=== PATIENT | male | born 1965 | race Caucasian/White ===

== ENCOUNTER 2023-03-14 15:30 | Emergency (ER) | payer OTHER, SELFPAY ==
[2023-03-14 15:31] VITALS: BP 194/105; RESP 18; TEMP 36.8; BMI 28.1
[2023-03-14 15:39] VITALS: PULSE 107; RESP 18; O2SAT 95
--- NOTE | 2023-03-14 15:49 | W.ED.ALLEREA ---
HPI - Allergic Reaction General: Chief complaint: Allergic Reaction Stated complaint: ALLERGIC REACTION Time Seen by Provider: 03/14/23 15:49 History of Present Illness: HPI narrative: Mr. Pillai is a 58-year-old gentleman presenting to the emergency department for evaluation of anaphylaxis. He reports getting stung by yellow jackets on his nose and arms. He subsequently had a syncopal episode with altered mental status and pallor. EMS arrived and patient was responsive. Benadryl and Solu-Medrol given prehospital. Patient currently feels mildly unwell however not as bad as he did. Denies similar episodes in the past. No other specific changes in health, exacerbating, or alleviating factors identified. Review of Systems General: Reports: 10 or more systems reviewed and unremarkable except in HPI and below PFSH ED PFSH: Medical History (Updated 03/23/23 @ 15:55 by Chandu Grier MD) No significant past medical history Surgical History (Updated 03/23/23 @ 15:55 by Chandu Grier MD) No significant past surgical history Physical Exam Const: COMMON NORMALS: alert GENERAL APPEARANCE: cooperative and well developed HENMT: COMMON NORMALS: normocephalic and atraumatic HEAD & SCALP: normocephalic and atraumatic THROAT: posterior oropharynx normal Eye: COMMON NORMALS: conjunctivae normal CONJUNCTIVA: Yes conjunctivae normal SCLERA: sclerae normal Neck/C-Spine: COMMON NORMALS: supple GENERAL: Yes trachea midline Resp: COMMON NORMALS: clear to auscultation bilaterally EFFORT & INSPECTION: Yes able to speak in complete sentences AUSCULTATION: clear to auscultation bilaterally Cardio: COMMON NORMALS: regular rate and regular rhythm RATE: regular rate RHYTHM: regular rhythm GI: COMMON NORMALS: Soft to palpation PALPATION: Yes Soft to palpation and No Tenderness to palpation present (GI) Extremity: GENERAL: Yes normal exam except as noted and No edema Neuro: COMMON NORMALS: moves all extremities SENSORIUM/ORIENTATION: Yes alert and No Orientation impaired Psych: COMMON NORMALS: mental status grossly normal and Normal thought process present THOUGHT PROCESS: Normal thought process present Course Vital Signs: Vital signs: Vital Signs Temperature 98.2 F 03/14/23 15:31 Pulse Rate 98 03/14/23 17:00 Respiratory Rate 16 03/14/23 16:08 Blood Pressure 157/93 03/14/23 17:00 Pulse Oximetry 95 03/14/23 18:04 Oxygen Delivery Me thod Room Air 03/14/23 15:39 MDM - Allergic Reaction Medical Decision Making 58-year-old gentleman presenting with multiple insect stings and associated syncopal episode. Somewhat ill however nontoxic. No focal deficits. EKG demonstrates sinus rhythm with normal axis and intervals with exception of first-degree AV block. No STEMI. Labs with no significant hematologic abnormalities. Metabolic panel with mild dehydration and elevated creatinine. Chest x-ray with no lobar consolidation or pneumothorax. Treated with fluids and Pepcid. Continues to have sustained improvement on serial reexamination without evidence of recurrence. The results of ED evaluation were discussed with the patient including prescriptions and/or symptomatic cares (if applicable) including appropriate and responsible use, followup plan, and return precautions. The patient verbalized understanding and felt safe for discharge. Medical Records I reviewed the patient's medical records. Lab Data I reviewed the patient's lab results. 03/14/23 14:49 03/14/23 14:49 Radiology Impressions Chest X-Ray 03/14/23 15:54 IMPRESSION: Unremarkable portable chest. Laboratory Results WBC 8.6 10^3/uL (4.0-10.0) 03/14/23 14:49 RBC 5.05 10^6/uL (4.1-5.3) 03/14/23 14:49 Hgb 15.1 g/dL (11.7-16.6) 03/14/23 14:49 Hct 45.7 % (42.0-52.0) 03/14/23 14:49 MCV 90.5 fl (80-94) 03/14/23 14:49 MCH 29.9 pg (28.0-34.0) 03/14/23 14:49 MCHC 33.0 g/dL (30.0-36.0) 03/14/23 14:49 RDW 12.6 % (12.1-15.1) 03/14/23 14:49 Plt Count 344 10^3/cmm (130-400) 03/14/23 14:49 MPV 11.1 fL (7.4-10.4) H 03/14/23 14:49 Neut % (Auto) 71.4 % 03/14/23 14:49 Lymph % (Auto) 21.7 % 03/14/23 14:49 [place] % (Auto) 5.2 % 03/14/23 14:49 Eos % (Auto) 1.2 % 03/14/23 14:49 Baso % (Auto) 0.2 % 03/14/23 14:49 Neut # (Auto) 6.15 10^3/uL (1.8-7.7) 03/14/23 14:49 Lymph # (Auto) 1.9 10^3/uL (0.8-4.8) 03/14/23 14:49 [place] # (Auto) 0.5 10^3/uL (0.2-0.9) 03/14/23 14:49 Eos # (Auto) 0.1 10^3/uL (0.0-0.8) 03/14/23 14:49 Baso # (Auto) 0.0 10^3/uL (0.0-0.1) 03/14/23 14:49 Nucleated RBC % (auto) 0 % 03/14/23 14:49 Nucleated RBCs # 0.0 /100WBC 03/14/23 14:49 Sodium 142 mmol/L (136-145) 03/14/23 14:49 Potassium 3.6 mmol/L (3.5-5.1) 03/14/23 14:49 Chloride 103 mmol/L (98-107) 03/14/23 14:49 Carbon Dioxide 22 mmol/L (22-29) 03/14/23 14:49 Anion Gap 20.6 (5-19) H 03/14/23 14:49 BUN 19 mg/dL (6-20) 03/14/23 14:49 Creatinine 1.4 mg/dL (0.7-1.2) H 03/14/23 14:49 GFR Calculation 52.1 mL/min (90-130) L 03/14/23 14:49 Glucose 123 mg/dL (65-115) H 03/14/23 14:49 Calculated Osmolality 298 mOsm/kg (285-295) H 03/14/23 14:49 Calcium 9.7 mg/dL (8.5-10.5) 03/14/23 14:49 Total Bilirubin 0.5 mg/dL (0.15-1.2) 03/14/23 14:49 AST 18 U/L (0-40) 03/14/23 14:49 ALT 17 U/L (0-41) 03/14/23 14:49 Alkaline Phosphatase 49 U/L (40-130) 03/14/23 14:49 Troponin T Baseline 9 ng/L (0-15) 03/14/23 14:49 Troponin T 120 Minute 11.46 ng/L (0-15) 03/14/23 16:48 Delta Troponin T 2.46 ABS# (0-10) 03/14/23 16:48 Total Protein 7.5 g/dL (6.6-8.7) 03/14/23 14:49 Albumin 4.4 g/dL (3.5-5.2) 03/14/23 14:49 Globulin 3.1 g/dL (1.3-4.6) 03/14/23 14:49 Discharge Plan Discharge Patient Disposition: Home Clinical Impression: Insect bites and stings, Anaphylaxis Condition: Stable Prescriptions: New EpiPen 2-Marquise 0.3 mg/0.3 mL auto-injector 0.3 mg IM Q10M PRN (Reason: anaphylaxis) Qty: 2 3RF Rx Instructions: for 2 doses Discharge Orders: Discharge ED (Routine); Ordered 03/14/23 Ordered By: Chandu Grier Discharge Diet: Usual diet Discharge Activity: Increase activity as tolerated Patient Instructions: Insect Bite or Sting (ED), Anaphylaxis (ED) Activity Restrictions/Additional Instructions: Thank you for visiting the emergency department. You were seen and evaluated for likely severe allergic reaction/anaphylaxis. We are pleased that your improved with treatment. We will prescribe steroids and Pepcid. For symptoms that occur despite these medications you may use Benadryl. Additionally I will prescribe EpiPen if anaphylactic reaction occurs again. Follow-up with your primary care provider. Return for anything that you are concerned about and feel needs emergency department evaluation. Coding Level of Care Code ED Driver License Examiner for Elisha Rosas
--- NOTE | 2023-03-14 15:54 | XR_ITS ---
WS: [id number] PORTABLE CHEST HISTORY: syncope COMPARISON: None available. Lungs are clear and well expanded. No pleural effusion or pneumothorax. Cardiac size: Normal. Mediastinum/Aorta: Mild atherosclerosis aorta. No osseous abnormality seen. XR/XR chest 1V portable [id number] IMPRESSION: Unremarkable portable chest.
[2023-03-14] MEDS: famotidine 20 mg/2 mL INJ 40 MG IVP (16:07)
[2023-03-14] MEDS: sodium chloride 0.9% 1,000 ML 999 ML IV (16:07)
[2023-03-14 16:08] VITALS: BP 177/104; PULSE 104; RESP 16; O2SAT 93
--- NOTE | 2023-03-14 16:10 | ECG_ITS ---
[facility] Test Date: 2023-03-14 Pat Name: Kodak Pillai Department: Room: Gender: Male Rig Superintendent: : 1965 Requested By: Chandu Grier Order Number: [id number] Ashanti MD: Eric Redman M.D. Measurements Intervals [place] Rate: 98 P: 56 [place]: 211 QRS: 26 QRSD: 97 T: 99 QT: 360 QTc: 461 Interpretive Statements SINUS RHYTHM WITH FIRST DEGREE AV BLOCK MODERATE VOLTAGE CRITERIA FOR LVH, CONSIDER NORMAL VARIANT [MEETS CRITERIA IN ONE OF: R(aVL), S(V1), R(V5), R(V5/V6)+S(V1)] ST DEVIATION AND MODERATE T-WAVE ABNORMALITY, CONSIDER LATERAL ISCHEMIA [-0.1+ mV T-WAVE IN I/aVL/V5/V6] No previous ECG available for comparison Electronically Signed On 03-14-2023 19:53:50 CDT by Eric Redman M.D. [id number]
[2023-03-14 16:13] LABS: Basophils % 0.2 %; Eosinophils # 0.1 10^3/uL (0.0-0.8); Eosinophils % 1.2 %; Hematocrit 45.7 % (42.0-52.0); Hemoglobin 15.1 g/dL (11.7-16.6); Lymphocytes # 1.9 10^3/uL (0.8-4.8); Lymphocytes % 21.7 %; Mean Corpuscular Hemoglobin 29.9 pg (28.0-34.0); Mean Corpuscular Volume 90.5 fl (80-94); Mean Platelet Volume 11.1 fL (7.4-10.4); Monocytes # 0.5 10^3/uL (0.2-0.9); Monocytes % 5.2 %; Neutrophils # 6.15 10^3/uL (1.8-7.7); Neutrophils % 71.4 %; Nucleated Red Blood Cells % 0 %; Platelet Count 344 10^3/cmm (130-400); Red Blood Count 5.05 10^6/uL (4.1-5.3); Red Cell Distribution Width 12.6 % (12.1-15.1); White Blood Count 8.6 10^3/uL (4.0-10.0)
[2023-03-14 16:24] LABS: Alanine Aminotransferase 17 U/L (0-41); Albumin Level 4.4 g/dL (3.5-5.2); Alkaline Phosphatase 49 U/L (40-130); Anion Gap 20.6 (5-19); Aspartate Amino Transferase 18 U/L (0-40); Blood Urea Nitrogen 19 mg/dL (6-20); Calcium 9.7 mg/dL (8.5-10.5); Carbon Dioxide 22 mmol/L (22-29); Chloride 103 mmol/L (98-107); Globulin 3.1 g/dL (1.3-4.6); Glomerular Filtration Rate 52.1 mL/min (90-130); Glucose 123 mg/dL (65-115); Osmolality Calculated 298 mOsm/kg (285-295); Potassium 3.6 mmol/L (3.5-5.1); Sodium 142 mmol/L (136-145); Total Bilirubin 0.5 mg/dL (0.15-1.2); Total Protein 7.5 g/dL (6.6-8.7); Troponin(5th) Baseline 9 ng/L (0-15)
[2023-03-14 16:30] VITALS: BP 150/94; PULSE 101; O2SAT 92
[2023-03-14 17:00] VITALS: BP 157/93; PULSE 98; O2SAT 91
[2023-03-14 17:39] LABS: Troponin 5 2HR 11.46 ng/L (0-15)
[2023-03-14 17:55] LABS: Troponin 5 2HR Delta 2.46 ABS# (0-10)
[2023-03-14 18:04] VITALS: O2SAT 95
== END 2023-03-14 18:06 | disposition home or self-care (01) ==
PROVIDERS: Emergency Provider Emergency Medicine
DX: T63.441A Toxic effect of venom of bees, accidental (unintentional), initial encounter (principal); T78.2XXA Anaphylactic shock, unspecified, initial encounter
CPT/HCPCS: 36415; 71045; 80053; 84484; 85025; 93005; 96374; 99285; J3490; J7030

== ENCOUNTER → 2023-03-24 08:52 | Outpatient (BNVA) | payer OTHER, SELFPAY | PROVIDERS: PCP Nurse Practitioner Family; Visit Provider Nurse Practitioner Family | DX: I10 Essential (primary) hypertension (principal) | CPT/HCPCS: 80053; 80061 ==

== ENCOUNTER → 2023-07-23 08:43 | Outpatient (BNVA) | payer OTHER, SELFPAY | PROVIDERS: PCP Nurse Practitioner Family; Visit Provider Nurse Practitioner Family | DX: R07.89 Other chest pain (principal); I10 Essential (primary) hypertension | CPT/HCPCS: 93005 ==

== ENCOUNTER 2023-09-10 12:02 | Outpatient (CLI) | payer OTHER, SELFPAY ==
--- NOTE | 2023-09-10 | ECG_ITS ---
[facility] Test Date: 2023-09-10 Pat Name: Kodak Pillai Department: Room: Gender: Male Director Of [employer]: Domonique Rahman : 1965 Requested By: Elaina Mayes Order Number: [id number] Ashanti MD: Christ Gilmore M.D. Interpretive Statements NAME OF STUDY: TREADMILL STRESS TEST INDICATION: [Chest Pain, ] EXERCISE DATA: The patient was exercised by Alli protocol. Baseline heart rate was 63 beats per minute. Baseline blood pressure was 136/77 millimeters of mercury. Target heart rate was 138 beats per minute. Maximum heart rate achieved was 153, which was 110% of the target heart rate. Maximum blood pressure was 210/81 millimeters of mercury. Total exercise time was 8 minutes 56 seconds. Maximum METs achieved was 10.2. The reason for ending the test was completion of protocol. The patient complained of shortness of breath during the stress test, which then resolved at the end of the test. ELECTROCARDIOGRAM: BASELINE: Showed sinus rhythm, normal axis, no significant ST-T changes at the baseline noted. [] EXERCISE: At the peak exercise level, [] No significant ST-T changes suggestive of ischemia noted. [] RECOVERY: During the recovery period, heart rate dropped appropriately. No significant ST-T changes in the recovery suggestive of ischemia noted. [] CONCLUSION: 1. Exercise capacity is good. 2. Heart rate response was appropriate 3. Blood pressure response was appropriate 4. Symptoms not suggestive of ischemia. 5. Stress test does not indicate ischemia Electronically Signed On 09-12-2023 13:43:13 INSULATION BOARD COATER OPERATOR by Christ Gilmore M.D. [id number]
[2023-09-10 12:28] VITALS: BMI 29.0
[2023-09-10 13:02] VITALS: BP 145/80; PULSE 96
== END 2023-09-10 12:03 | disposition home or self-care (01) ==
PROVIDERS: PCP Nurse Practitioner Family; Visit Provider Nurse Practitioner Family
DX: R07.9 Chest pain, unspecified (principal)
CPT/HCPCS: 93017

== ENCOUNTER → 2024-01-12 09:01 | Outpatient (BNVA) | payer OTHER, SELFPAY | PROVIDERS: PCP Nurse Practitioner Family; Visit Provider Nurse Practitioner Family | DX: I10 Essential (primary) hypertension (principal); Z79.899 Other long term (current) drug therapy | CPT/HCPCS: 80053; 80061; 85025 ==

== ENCOUNTER 2024-05-08 11:26 | Outpatient (CLI) | payer OTHER, SELFPAY ==
--- NOTE | 2024-05-08 11:30 | XR_ITS ---
WS: [id number] Exam: XR knee RT 3V* [id number] Date/Time of Exam: 05/08/2024 11:34 AM Reason For Exam: [id number] - Pain in right knee No acute fracture or dislocation. Mild to moderate narrowing of the medial compartment. No joint effu vish. Normal soft tissues. XR/XR knee RT 3V* [id number] IMPRESSION: 1. Degenerative narrowing of the medial joint compartment. No fracture or other significant finding.
== END 2024-05-08 11:27 | disposition home or self-care (01) ==
LOC: RAD 11:27
PROVIDERS: PCP Nurse Practitioner Family; Visit Provider Nurse Practitioner Family
DX: M17.11 Unilateral primary osteoarthritis, right knee (principal)
CPT/HCPCS: 73562; 80053; 84550; 85025; 85651; 86140

== ENCOUNTER 2025-03-14 09:54 | Emergency (ER) | payer OTHER, SELFPAY ==
[2025-03-14 10:05] VITALS: BP 180/115; PULSE 74; RESP 16; TEMP 36.8; O2SAT 96; BMI 27.2
--- NOTE | 2025-03-14 10:06 | CT_ITS ---
WS: [id number] CT HEAD NONCONTRAST HISTORY: leg weakness TECHNIQUE: Contiguous axial imaging performed through the brain. Bone and soft tissue windows. Sagittal and coronal reformats reviewed. All CT scans at [facility] use at least one of these dose optimization techniques: automated exposure control; mA and/or kV adjustment per patient size (includes targeted exams where dose is matched to clinical indication); or iterative reconstruction. DLP: 1183.38 mGy.cm COMPARISON: None available. No acute intracranial hemorrhage, midline shift or mass effect. Very minimal atrophy and small vessel disease. Prior lacunar infarct LEFT basal ganglia. Hyperdense lesion involving the posterior LEFT parietal cortex measures 7 x 7 mm. No adjacent edema. No additional similar lesions. Ventricles: Normal size with no hydrocephalus. No inferior displacement of cerebellar tonsils. Paranasal sinuses: As visualized are clear. Mastoid air cells: Well pneumatized. Calvarium and scalp: Skull is intact with no soft tissue edema or swelling. CT/CT head wo con* [id number] IMPRESSION: 1. Hyperdense 7 x 7 mm lesion in the posterior LEFT parietal cortex. Different ial includes blood products, cavernous malformation, calcification and metastat ic site. Recommend follow-up MRI brain with and without contrast. 2. Mild cerebral atrophy with a small lacunar infarct in the LEFT basal gangli a.
--- NOTE | 2025-03-14 10:07 | W.ED.GENADLT ---
HPI - General Adult General: Chief complaint: Weakness Stated complaint: L knee issues Time Seen by Provider: 03/14/25 10:00 Source: patient Mode of arrival: ambulatory Limitations: no limitations History of Present Illness: 60-year-old male states that over the last 2 days he feels like his left leg is not working quite correctly. Patient is ambulatory here but he states that he just feels weak in his left leg from the hip down. He denies any pain in his back or hip or knee. He denies any slurred speech denies any numbness. Associated symptoms: Deny chest pain, dyspnea, headache(s), nausea, rash or vomiting Related Data Home Medications ?Medication ?Instructions ?Recorded ?Confirmed Super Beet Chews 2 chewable tab PO DAILY 03/14/25 03/14/25 aspirin 81 mg chewable tablet 81 mg PO DAILY 03/14/25 03/14/25 Previous Rx's ?Medication ?Instructions ?Recorded lisinopril 30 mg tablet 30 mg PO BID #180 tabs 05/08/24 atorvastatin 80 mg tablet (Lipitor) 80 mg PO DAILY #30 tabs 03/14/25 Allergies Allergy/AdvReac Type Severity Reaction Status Date / Time insect venom Allergy Severe syncope Verified 06/20/24 14:03 Review of Systems Const: Denies: fever(s), chills, body aches or change in appetite ENMT: Denies: throat pain or dental pain Card: Denies: chest pain Resp: Denies: dyspnea GI: Denies: abdominal pain, nausea, vomiting or diarrhea Musc: Denies: neck pain or back pain Skin/Breast: Denies: rash Neuro: Reports: weakness in extremities; Denies: headache(s) PFSH ED PFSH: Medical History Hypertension No significant past medical history Surgical History No significant past surgical history Social History Smoking and tobacco/nicotine status: never used tobacco/nicotine Physical Exam Const: COMMON NORMALS: no acute distress, patient oriented x3 and healthy appearing HENMT: COMMON NORMALS: normocephalic and atraumatic HEAD & SCALP: normocephalic and atraumatic Eye: COMMON NORMALS: conjunctivae normal CONJUNCTIVA: Yes conjunctivae normal OTHER: Foreign body noted left eye Neck/C-Spine: COMMON NORMALS: full ROM and supple Chest: COMMONS NORMALS: normal inspection of the chest Resp: COMMON NORMALS: normal respiratory effort, No retractions, No use of accessory muscles and clear to auscultation bilaterally AUSCULTATION: clear to auscultation bilaterally Cardio: COMMON NORMALS: regular rate, regular rhythm and No murmurs present (Cardio) RATE: regular rate RHYTHM: regular rhythm Extremity: COMMON NORMALS: normal to inspection and full ROM Neuro: COMMON NORMALS: patient oriented x3, moves all extremities and no focal motor deficits SPEECH: speech normal GAIT: Yes Normal gait present MOTOR EXAM: 5/5 motor strength present throughout Psych: COMMON NORMALS: mental status grossly normal, Normal thought process present and cooperative THOUGHT PROCESS: Normal thought process present Skin: COMMON NORMALS: no rashes or lesions noted and no wounds GENERAL SKIN EXAM: no rashes or lesions noted Course Vital Signs: Vital signs: Vital Signs Temperature 98.2 F 03/14/25 10:05 Pulse Rate 72 03/14/25 12:47 Respiratory Rate 18 03/14/25 12:47 Blood Pressure 184/111 03/14/25 12:47 Pulse Oximetry 97 03/14/25 12:47 Oxygen Delivery Me thod Room Air 03/14/25 10:05 [facility] - General Adult Medical Decision Making Patient presents here with some leg weakness head CT I did go over with him showing a possible mass did attempt MRI but he has piece of metal in his I believe it been there for quite some time did attempt to remove it with a bur was not able to fully remove it so is not able to get MRI I did offer him admission but he states that he wants to follow-up we will get him follow-up with neurology he does take a baby aspirin today we will prescribe him a statin. He is going to follow-up with his coverage specialist for the foreign body Medical Records I reviewed the patient's medical records. Lab Data 03/14/25 10:35 03/14/25 10:[address] 03/14/25 10:06 IMPRESSION: 1. Hyperdense 7 x 7 mm lesion in the posterior LEFT parietal cortex. Differential includes blood products, cavernous malformation, calcification and metastatic site. Recommend follow-up MRI brain with and without contrast. 2. Mild cerebral atrophy with a small lacunar infarct in the LEFT basal ganglia. Laboratory Results WBC 8.44 10^3/uL (3.29-11.43) 03/14/25 10:35 RBC 4.55 10^6/uL (3.85-5.65) 03/14/25 10:35 Hgb 13.30 g/dL (11.27-16.99) 03/14/25 10:35 Hct 41.4 % (37-53) 03/14/25 10:35 MCV 91.0 fl (82-101) 03/14/25 10:35 MCH 29.2 pg (27-33) 03/14/25 10:35 MCHC 32.1 g/dL (30-55) 03/14/25 10:35 RDW 12.4 % (12.1-15.1) 03/14/25 10:35 Plt Count 293 10^3/cmm (157-399) 03/14/25 10:35 MPV 10.2 fL (7.4-10.4) 03/14/25 10:35 Neut % (Auto) 74.8 % 03/14/25 10:35 Lymph % (Auto) 14.9 % 03/14/25 10:35 [place] % (Auto) 6.9 % 03/14/25 10:35 Eos % (Auto) 2.7 % 03/14/25 10:35 Baso % (Auto) 0.5 % 03/14/25 10:35 Neut # (Auto) 6.31 10^3/uL (1.8-7.7) 03/14/25 10:35 Lymph # (Auto) 1.3 10^3/uL (0.8-4.8) 03/14/25 10:35 [place] # (Auto) 0.6 10^3/uL (0.2-0.9) 03/14/25 10:35 Eos # (Auto) 0.2 10^3/uL (0.0-0.8) 03/14/25 10:35 Baso # (Auto) 0.0 10^3/uL (0.0-0.1) 03/14/25 10:35 Nucleated RBC % (auto) 0 % 03/14/25 10:35 Nucleated RBCs # 0.0 /100WBC 03/14/25 10:35 Sodium 138 mmol/L (136-145) 03/14/25 10:35 Potassium 4.0 mmol/L (3.5-5.1) 03/14/25 10:35 Chloride 103 mmol/L (98-107) 03/14/25 10:35 Carbon Dioxide 23 mmol/L (22-29) 03/14/25 10:35 Anion Gap 16.0 (5-19) 03/14/25 10:35 BUN 20 mg/dL (8-23) 03/14/25 10:35 Creatinine 1.1 mg/dL (0.7-1.2) 03/14/25 10:35 GFR Calculation 68.3 mL/min (90-130) L 03/14/25 10:35 Glucose 97 mg/dL (65-115) 03/14/25 10:35 Calculated Osmolality 289 mOsm/kg (285-295) 03/14/25 10:35 Calcium 9.2 mg/dL (8.5-10.5) 03/14/25 10:35 Total Bilirubin 0.3 mg/dL (0.15-1.2) 03/14/25 10:35 AST 19 U/L (0-40) 03/14/25 10:35 ALT 18 U/L (0-41) 03/14/25 10:35 Alkaline Phosphatase 53 U/L (40-130) 03/14/25 10:35 Total Protein 7.6 g/dL (6.6-8.7) 03/14/25 10:35 Albumin 4.1 g/dL (3.5-5.2) 03/14/25 10:35 Globulin 3.5 g/dL (1.3-4.6) 03/14/25 10:35 All radiology interpretation(s) finalized by discharge EKG Data EKG 1: I personally reviewed and interpreted this EKG as follows: EKG interpretation date: 03/14/25 EKG interpretation time: 10:14 Interpretation: nsr hr [address] or t wave abnormalities qrs 90 qtc 399 Computer generated interpretation: Head CT 03/14/25 10:06 IMPRESSION: 1. Hyperdense 7 x 7 mm lesion in the posterior LEFT parietal cortex. Differential includes blood products, cavernous malformation, calcification and metastatic site. Recommend follow-up MRI brain with and without contrast. 2. Mild cerebral atrophy with a small lacunar infarct in the LEFT basal ganglia. Discharge Plan Discharge Patient Disposition: Home Clinical Impression: Leg weakness, Foreign body, eye Condition: Stable Prescriptions: New atorvastatin [Lipitor] 80 mg tablet 80 mg PO DAILY Qty: 30 0RF No Action lisinopril 30 mg tablet 30 mg PO BID Qty: 180 1RF aspirin [[facility] Childrens Aspirin] 81 mg Tablet,Chewable 81 mg PO DAILY Super Beet Chews 2 chewable tab PO DAILY Discharge Orders: Discharge ED (Routine); Ordered 03/14/25 Ordered By: Maggie Hood Referrals: All Lara MD [Physician, Neurology] - 4-7 days Elaina Mayes FNP [Primary Care Provider, Family Practice] Discharge Diet: Advance as tolerated Discharge Activity: Resume usual activity Patient Instructions: Foreign Body - Eye Print Language: Tamazight Coding Level of Care Code ED Plow And Boring Machine Tender for Elisha Rosas NIH stroke score NIHSS Level Of Consciousness - 1a: 0 Level Of Consciousness Questions - 1b: Both Correct Level Of Consciousness Commands - 1c: Both Correct Best Gaze - 2: Normal Visual Farrell - 3: No Visual Loss Facial Palsy - 4: Normal Motor Arm Right - 5: No Drift Motor Arm Left - 5: No Drift Motor Leg Right - 6: No Drift Motor Leg Left - 6: No Drift Limb Ataxia - 7: Absent Sensory - 8: Normal Best Language - 9: No Aphasia Dysarthia - 10: Normal Extinction And Inattention - 11: 0 Score Total Score: 0
--- OUTSIDE RECORDS SUMMARY | 2025-03-14 10:12 | XMS_ITS | Encounter Summary ---
Author Organization [facility] Address [address] [place] [address] Care Team Providers Care Licensing Director Name Role Phone Rhona Wu MD Primary Care Provider Encounter Details Date Type Department Care Team (Latest Contact Info) Description 09/02/2006 Outpatient Historical [facility] Family Medicine [place] [address] [phone] Elaina Mayes, FLEA MARKET SELLER [address] [place] [address] Pain in Joint, Lower Leg (Primary Dx) Social History Tobacco Use Types Packs/Day Years Used Date Smoking Tobacco: Never Assessed Sex and Gender Information Value Date Recorded Sex Assigned at Not on file 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
--- OUTSIDE RECORDS SUMMARY | 2025-03-14 10:12 | XMS_ITS | Encounter Summary ---
Author Organization [facility] Address [address] [place] [address] Care Team Providers Care Area Forester Name Role Phone Rhona Wu MD Primary Care Provider Encounter Details Date Type Department Care Team (Latest Contact Info) Description 09/16/2006 Outpatient Historical [facility] [place] [address] [phone] Elaina Mayes, MITERING MACHINE OPERATOR [address] [place] [address] Effusion of Lower Leg Joint (Primary Dx) Social History Tobacco Use Types Packs/Day Years Used Date Smoking Tobacco: Never Assessed Sex and Gender Information Value Date Recorded Sex Assigned at Not on file 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
--- OUTSIDE RECORDS SUMMARY | 2025-03-14 10:12 | XMS_ITS | Encounter Summary ---
Author Organization [facility] Address [address] [place] [address] Care Team Providers Care Stud Setter Name Role Phone Rhona Wu MD Primary Care Provider Encounter Details Date Type Department Care Team (Latest Contact Info) Description 03/19/2003 Outpatient Historical [facility] General Surgery [address] [address] [address] [place] [phone] [place] [id number] [facility] [address] [place] [phone] OPEN WOUND FOREHEAD-COMPL (Primary Dx) Social History Tobacco Use Types Packs/Day Years Used Date Smoking Tobacco: Never Assessed Sex and Gender Information Value Date Recorded Sex Assigned at Not on file 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
--- OUTSIDE RECORDS SUMMARY | 2025-03-14 10:12 | XMS_ITS | Encounter Summary ---
Author Organization [facility] Address [address] [place] [address] Care Team Providers Care Public Health Technologist Name Role Phone Rhona Wu MD Primary Care Provider Encounter Details Date Type Department Care Team (Latest Contact Info) Description 03/14/1999 Outpatient Historical [facility] Medicine [address] [phone] Marimar Szymanski NO ADDRESS ON FILE Allergic rhinitis, cause unspecified (Primary Dx); Dysfunct eustachian tube; Dizziness and giddiness Social History Tobacco Use Types Packs/Day Years Used Date Smoking Tobacco: Never Assessed Sex and Gender Information Value Date Recorded Sex Assigned at Not on file Legal Sex Male 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
--- OUTSIDE RECORDS SUMMARY | 2025-03-14 10:12 | XMS_ITS | Encounter Summary ---
Author Organization [facility] Address [address] [place] [address] Care Team Providers Care Maintenance Mechanic Helper Name Role Phone Rhona Wu MD Primary Care Provider [phone] Encounter Details Date Type Department Care Team (Latest Contact Info) Description 06/10/2006 Outpatient Historical [facility] Family Medicine [place] [address] [phone] Elaina Mayes, PRODUCTION CONTROL MANAGER [address] [place] [address] Removal of Sutures (Primary Dx) Social History Tobacco Use Types Packs/Day Years Used Date Smoking Tobacco: Never Assessed Sex and Gender Information Value Date Recorded Sex Assigned at Not on file Legal Sex Male 3:44 AM TUB WASHER Gender Identity Not on file Sexual Orientation Not on file documented as of this encounter Plan of Treatment Not on file documented as of this encounter Visit Diagnoses Diagnosis Removal of sutures- Primary Encounter for removal of sutures documented in this encounter Care Teams Maintenance Mechanic Helper Relationship Specialty Start Date End Date Rhona Wu MD [address] [address] PCP - General Family Practice 07/07/16 documented as of this encounter
--- OUTSIDE RECORDS SUMMARY | 2025-03-14 10:12 | XMS_ITS | Encounter Summary ---
Author Organization [facility] Address [address] [place] [address] Care Team Providers Care Audit Machine Operator Name Role Phone Rhona Wu MD Primary Care Provider [phone] Encounter Details Date Type Department Care Team (Latest Contact Info) Description 03/27/[address] 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
--- OUTSIDE RECORDS SUMMARY | 2025-03-14 10:12 | XMS_ITS | Encounter Summary ---
Author Organization [facility] Address [address] [place] [address] Care Team Providers Care Metal Sander Name Role Phone Rhona Wu MD Primary Care Provider [phone] Encounter Details Date Type Department Care Team (Late st Contact Info) Description 09/17/2006 Outpatient Historical [facility] [place] [address] [place] [phone] Social History Tobacco Use Types Packs/Day Years Used Date Smoking Tobacco: Never Assessed Sex and Gender Information Value Date Recorded Sex Assigned at Not on file 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
--- OUTSIDE RECORDS SUMMARY | 2025-03-14 10:12 | XMS_ITS | Clinical Summary ---
Author Organization [facility] Address [address] Lauren: [place] [address] Care Team Providers Care Office Receptionist Name Role Phone Rhona Wu MD Primary Care Provider Allergies No known active allergies Medications aspirin (ECOTRIN EC) 81 mg Tablet, Delayed Release (E.C.) Take 81 mg by mouth daily. 07/19/2019 Active lisinopriL (PRINIVIL) 10 mg tablet Take 1 Tablet (10 mg) by mouth 2 times daily. 180 Tablet 3 10/10/2021 Active atorvastatin (LIPITOR) 20 mg tablet Take 1 Tablet (20 mg) by mouth daily with supper. 90 Tablet 3 10/10/2021 Active amLODIPine (NORVASC) 5 mg tablet Take 1 tablet by mouth once daily 90 Tablet 06/10/2022 Active Active Problems Problem Noted Date Diagnosed Date Hypertension 10/10/2021 Hyperlipidemia 10/10/2021 Cerebrovascular disease 11/30/2019 Tobacco use 07/07/2016 Foreign body of thigh, right, superficial 2010 Immunizations Immunization Administration Dates Next Due (TDVAX)(7 YRS UP) TETANUS AN D DIPHTHERIA TOXOIDS, ADSORBED (2 LF OF TETANUS TOXOID AND 2 LF OF DIPHTHERIA TOXOID), 0.5ML (PF), IM 04/27/2011 Family History Medical History Relation Name Comments Healthy Father Diabetes Maternal Grandfather Cancer Maternal Uncle Healthy Mother Heart Disease Neg Hx Relation Name Status Comments Father Alive Maternal Grandfather Maternal Uncle Mother Alive Social History Tobacco Use Types Packs/Day Years Used Date Smoking Tobacco: Former Smokeless Tobacco: Current Alcohol Use Standard Drinks/Week Comments Yes 0 (1 standard drink = 0.6 oz pur e alcohol) Sex and Gender Information Value Date Recorded Sex Assigned at Not on file Legal Sex Male 9:24 AM INSURANCE CLAIMS ADJUSTER Gender Identity Not on file Sexual Orientation Not on file Last Filed Vital Signs Vital Sign Reading Time Taken Comments Blood Pressure 150/94 10/10/2021 2:59 PM INSURANCE CLAIMS ADJUSTER Pulse 104 10/10/2021 2:59 PM INSURANCE CLAIMS ADJUSTER Temperature 36.5 C (97.7 F) 10/10/2021 2:59 PM INSURANCE CLAIMS ADJUSTER Respiratory Rate 16 07/02/2020 12:55 PM INSURANCE CLAIMS ADJUSTER Oxygen Saturation 98% 10/10/2021 2:59 PM INSURANCE CLAIMS ADJUSTER Inhaled Oxygen Concentration - - Weight 85.7 kg (189 lb) 10/10/2021 2:59 PM INSURANCE CLAIMS ADJUSTER Height 170.2 cm (5' 7 ) 10/10/2021 2:59 PM INSURANCE CLAIMS ADJUSTER Body Mass Index 29.6 10/10/2021 2:59 PM INSURANCE CLAIMS ADJUSTER Plan of Treatment Health Maintenance Due Date Last Done Comments COLORECTAL SCREENING 2010 Colorectal Cancer Screening 2010 FIT-DNA Q 3 years 2010 FIT/FOBT Q 1 year 2010 Flex Sig/CT Colonography Q 5 years 2010 DTAP/TDAP/TD VACCINES (1 - Tdap) 04/28/2011 04/27/2011 ZOSTER VACCINE (1 of 2) 2015 Preventative Visit- Commercial 08/09/2024 INFLUENZA VACCINE (#1) 2025 2, 07/02/2020, 07/04/2019, Additional history exists RSV VACCINE (60+ or ) (1 - 1-dose 75+ series) 01/28/2040 HEPATITIS B VACCINES Aged Out No long er eligible based on patient's age to complete this topic Insurance [address] [place] [id number] [facility] Care Teams Office Receptionist Relationship Specialty Start Date End Date Rhona Wu MD [address] [facility] [address] [place] [phone] PCP - General Family Practice 07/07/16
--- OUTSIDE RECORDS SUMMARY | 2025-03-14 10:12 | XMS_ITS | Clinical Summary ---
Author Organization [facility] Address [address] [place] [address] Care Team Providers Care Engine Dynamometer Tester Name Role Phone Rhona Wu MD Primary Care Provider Allergies No known active allergies Medications aspirin (ECOTRIN EC) 81 mg Tablet, Delayed Release (E.C.) Take 81 mg by mouth daily. Active amLODIPine (NORVASC) 5 mg tablet Take 1 tablet by mouth once daily 90 Tablet 3 07/02/2020 Active lisinopriL (PRINIVIL) 10 mg tablet Take 1 Tablet (10 mg) by mouth 2 times daily. 180 Tablet 3 07/02/2020 Active atorvastatin (LIPITOR) 20 mg tablet TAKE 1 TABLET BY MOUTH ONCE DAILY WITH SUPPER 90 Tablet 3 07/02/2020 Active Active Problems Problem Noted Date Diagnosed Date Cerebrovascular disease 11/30/2019 Tobacco use 07/07/2016 Foreign body of thigh, right, superficial 2010 Immunizations Immunization Administration Dates Next Due (TDVAX)(7 YRS UP) TETANUS AN D DIPHTHERIA TOXOIDS, ADSORBED (2 LF OF TETANUS TOXOID AND 2 LF OF DIPHTHERIA TOXOID), 0.5ML (PF), IM 04/27/2011 05/05/2021 Family History Medical History Relation Name Comments Healthy Father Diabetes Maternal Grandfather Cancer Maternal Uncle Healthy Mother Heart Disease Neg Hx Relation Name Status Comments Father Alive Maternal Grandfather Maternal Uncle Mother Alive Social History Tobacco Use Types Packs/Day Years Used Date Smoking Tobacco: Former Smokeless Tobacco: Current Chew Tobacco Cessation:Ready to Q uit: No; Counseling Given: Yes Alcohol Use Standard Drinks/Week Comments Yes 0 (1 standard drink = 0.6 oz pur e alcohol) Sex and Gender Information Value Date Recorded Sex Assigned at Not on file Legal 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 Gender Identity Not on file Sexual Orientation Not on file Last Filed Vital Signs Vital Sign Reading Time Taken Comments Blood Pressure 128/80 07/02/2020 12:55 PM PARTY BUS DRIVER Pulse 100 07/02/2020 12:55 PM PARTY BUS DRIVER Temperature 37 C (98.6 F) 07/02/2020 12:55 PM PARTY BUS DRIVER Respiratory Rate 16 07/02/2020 12:55 PM PARTY BUS DRIVER Oxygen Saturation 97% 07/02/2020 12:55 PM PARTY BUS DRIVER Inhaled Oxygen Concentration - - Weight 83.9 kg (185 lb) 07/02/2020 12:55 PM PARTY BUS DRIVER Height 167.6 cm (5' 6 ) 07/02/2020 12:55 PM PARTY BUS DRIVER Body Mass Index 29.86 07/02/2020 12:55 PM PARTY BUS DRIVER Plan of Treatment Health Maintenance Due Date Last Done Comments COLORECTAL SCREENING 2010 Colorectal Cancer Screening 2010 FIT-DNA Q 3 years 2010 FIT/FOBT Q 1 year 2010 Flex Sig/CT Colonography Q 5 years 2010 DTAP/TDAP/TD VACCINES (1 - Tdap) 04/28/2011 04/27/2011 ZOSTER VACCINE (1 of 2) 2015 Preventative Visit- Commercial 08/09/2024 INFLUENZA VACCINE (#1) 2025 0, 07/04/2019, 07/04/2019 RSV VACCINE (60+ or ) (1 - 1-dose 75+ series) 01/28/2040 HEPATITIS B VACCINES Aged Out No long er eligible based on patient's age to complete this topic Insurance BLUE CROSS PATHWAY(X) EXCHANGE Care Teams Engine Dynamometer Tester Relationship Specialty Start Date End Date Rhona Wu MD [address] [phone] PCP - General Family Practice 07/07/16
--- OUTSIDE RECORDS SUMMARY | 2025-03-14 10:12 | XMS_ITS | Encounter Summary ---
Author Organization [facility] Address [address] [place] [address] Care Team Providers Care Alumina Plant Supervisor Name Role Phone Rhona Wu MD Primary Care Provider Encounter Details Date Type Department Care Team (Late st Contact Info) Description 05/27/2006 Outpatient Historical [facility] Plastic Surgery 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
--- OUTSIDE RECORDS SUMMARY | 2025-03-14 10:12 | XMS_ITS | Encounter Summary ---
Author Organization [facility] Address [address] [place] [address] Care Team Providers Care Well Logging Operator Mud Analysis Name Role Phone Rhona Wu MD Primary Care Provider [phone] Encounter Details Date Type Department Care Team (Late st Contact Info) Description 05/27/2006 Outpatient Historical [facility] Social History Tobacco Use Types Packs/Day Years Used Date Smoking Tobacco: Never Assessed Sex and Gender Information Value Date Recorded Sex Assigned at Not on file Legal Sex Male 3:44 AM ENVIRONMENTAL ADVISOR Gender Identity Not on file Sexual Orientation Not on file documented as of this encounter Plan of Treatment Not on file documented as of this encounter Visit Diagnoses Not on filedocumented in this encounter Care Teams Well Logging Operator Mud Analysis Relationship Specialty Start Date End Date Rhona Wu MD [address] [place] [address] PCP - General Family Practice 07/07/16 documented as of this encounter
--- OUTSIDE RECORDS SUMMARY | 2025-03-14 10:12 | XMS_ITS | Encounter Summary ---
Author Organization [facility] Address [address] [place] [address] Care Team Providers Care Business Relationship Manager Name Role Phone Rhona Wu MD Primary Care Provider [phone] Encounter Details Date Type Department Care Team (Latest Contact Info) Description 03/19/2003 Outpatient [facility] [address] [place] [address] Nash Brian MD [address] [facility] [address] [place] [phone] OPEN WOUND OF HEAD NEC (Primary Dx) Social History Tobacco Use Types Packs/Day Years Used Date Smoking Tobacco: Never Assessed Sex and Gender Information Value Date Recorded Sex Assigned at Not on file Legal Sex Male 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
--- OUTSIDE RECORDS SUMMARY | 2025-03-14 10:12 | XMS_ITS | Encounter Summary ---
Author Organization [facility] Address [address] [place] [address] Care Team Providers Care Mental Health Clinician Name Role Phone Rhona Wu MD Primary Care Provider [phone] Encounter Details Date Type Department Care Team (Late st Contact Info) Description 05/27/2006 Outpatient Historical [facility] Hand Therapy [address] [place] [address] Kin Elaine MD [address] [facility] [address] [place] [phone] Open Wound of Finger(s) , with Tendon Involvement (Primary Dx) Social History Tobacco Use Types Packs/Day Years Used Date Smoking Tobacco: Never Assessed Sex and Gender Information Value Date Recorded Sex Assigned at Not on file Legal Sex Male 3:44 AM INFORMATION TECHNOLOGY SECURITY ANALYST Gender Identity Not on file Sexual Orientation Not on file documented as of this encounter Plan of Treatment Not on file documented as of this encounter Visit Diagnoses Diagnosis Open wound of finger(s) , with tendon involvement- Primary documented in this encounter Care Teams Mental Health Clinician Relationship Specialty Start Date End Date Rhona Wu MD [address] [place] [phone] PCP - General Family Practice 07/07/16 documented as of this encounter
--- OUTSIDE RECORDS SUMMARY | 2025-03-14 10:12 | XMS_ITS | Encounter Summary ---
Author Organization [email or web address] Address [address] [place] [address] Care Team Providers Care Adoption Agent Name Role Phone Rhona Wu MD Primary Care Provider [phone] Encounter Details Date Type Department Care Team (Late st Contact Info) Description 06/27/2006 Outpatient Historical [facility] Hand Therapy [address] [place] [address] Kin Elaine MD [address] [facility] [address] [place] [phone] Social History Tobacco Use Types Packs/Day Years Used Date Smoking Tobacco: Never Assessed Sex and Gender Information Value Date Recorded Sex Assigned at Not on file Legal Sex Male 3:44 AM MILL RECORDER Gender Identity Not on file Sexual Orientation Not on file documented as of this encounter Plan of Treatment Not on file documented as of this encounter Visit Diagnoses Not on filedocumented in this encounter Care Teams Adoption Agent Relationship Specialty Start Date End Date Rhona Wu MD [address] [facility] [address] [place] [phone] PCP - General Family Practice 07/07/16 documented as of this encounter
--- NOTE | 2025-03-14 10:14 | ECG_ITS ---
[facility]: 2025-[facility]14 Pat Name: Kodak Pillai Department: Room: Gender: Male Mri Specialist: : 1965 Requested By: Maggie Hood Order Number: [id number] Ashanti MD: Eric Redman M.D. Measurements Intervals Johnston Rate: 67 P: 32 NH: 180 QRS: 36 QRSD: 90 T: 57 QT: 383 QTc: 406 Interpretive Statements SINUS RHYTHM NONSPECIFIC T-WAVE ABNORMALITY Compared to ECG 03/14/2023 16:10:50 First degree AV block no longer present Possible ischemia no longer present T-wave abnormality still present Electronically Signed On 03-14-2025 22:49:52 CDT by Eric Redman M.D. [email or web address], [id number]
[2025-03-14 10:44] LABS: Hematocrit 41.4 % (37-53); Hemoglobin 13.30 g/dL (11.27-16.99); Mean Corpuscular HGB Conc 32.1 g/dL (30-55); Mean Corpuscular Hemoglobin 29.2 pg (27-33); Mean Corpuscular Volume 91.0 fl (82-101); Nucleated Red Blood Cells % 0 %; Platelet Count 293 10^3/cmm (157-399); Red Blood Count 4.55 10^6/uL (3.85-5.65); White Blood Count 8.44 10^3/uL (3.29-11.43)
[2025-03-14 11:01] LABS: Alanine Aminotransferase 18 U/L (0-41); Albumin Level 4.1 g/dL (3.5-5.2); Alkaline Phosphatase 53 U/L (40-130); Anion Gap 16.0 (5-19); Aspartate Amino Transferase 19 U/L (0-40); Blood Urea Nitrogen 20 mg/dL (8-23); Calcium 9.2 mg/dL (8.5-10.5); Carbon Dioxide 23 mmol/L (22-29); Chloride 103 mmol/L (98-107); Creatinine Clr Calc Pharmacy 71.9495; Globulin 3.5 g/dL (1.3-4.6); Glucose 97 mg/dL (65-115); Osmolality Calculated 289 mOsm/kg (285-295); Potassium 4.0 mmol/L (3.5-5.1); Sodium 138 mmol/L (136-145); Total Protein 7.6 g/dL (6.6-8.7)
--- NOTE | 2025-03-14 11:24 | PC.PHAR ---
pATIENT STATES HE IS ONLY TAKING BABY ASPRIN AND LISINIPRIL. CALLED CHANELL Bullock TO VERIFY AND CHANELL STATES PATIENT HAS FILLED LOSARTAN 25 AND LISINIPRIL 30 ON August FOR 90 DAYS . NO OTHER FILLS.
[2025-03-14 11:26] VITALS: O2SAT 94
[2025-03-14 12:20] VITALS: BP 180/104
[2025-03-14] MEDS: tetracaine 0.5% Op Soln 4 mL Btl 1 DROP EYE-LEFT (12:22)
[2025-03-14 12:47] VITALS: BP 184/111; PULSE 72; RESP 18; O2SAT 97
== END 2025-03-14 12:48 | disposition home or self-care (01) ==
PROVIDERS: Emergency Provider Emergency Medicine; PCP Nurse Practitioner Family
DX: R53.1 Weakness (principal); T15.92XA Foreign body on external eye, part unspecified, left eye, initial encounter; W44.9XXA Unspecified foreign body entering into or through a natural orifice, initial encounter; Z79.82 Long term (current) use of aspirin
CPT/HCPCS: 36415; 70450; 80053; 85025; 93005; 99284; J9999

== ENCOUNTER 2025-04-02 08:48 | Outpatient (RCR) | payer OTHER, SELFPAY | END 2025-04-08 23:59 | disposition home or self-care (01) | LOC: SPT 08:48 | PROVIDERS: PCP Nurse Practitioner Family; Visit Provider Nurse Practitioner Family | DX: M62.81 Muscle weakness (generalized) (principal) | CPT/HCPCS: 97161 ==

== ENCOUNTER 2025-04-09 05:00 | Outpatient (RCR) | payer OTHER, SELFPAY | END 2025-05-08 23:59 | disposition home or self-care (01) | LOC: SPT 05:00 | PROVIDERS: PCP Nurse Practitioner Family; Visit Provider Nurse Practitioner Family | DX: M62.81 Muscle weakness (generalized) (principal) | CPT/HCPCS: 97110; 97530 ==

== ENCOUNTER 2025-05-09 06:30 | Outpatient (RCR) | payer OTHER, SELFPAY | END 2025-05-10 12:08 | disposition home or self-care (01) | LOC: SPT 06:30 | PROVIDERS: PCP Nurse Practitioner Family; Visit Provider Nurse Practitioner Family | DX: M62.81 Muscle weakness (generalized) (principal) | CPT/HCPCS: 97110 ==